=== PATIENT | female | born 1980 | race Native Hawaiian/Other Pacific Islander ===

== ENCOUNTER 2017-09-03 18:42 | Emergency (ER) | payer BC ==
[~2017-09-03 18:42] MED LIST: ENOX40P SQ; PERC5TAB12 PO; PREN1TAB30
[2017-09-03 18:51] VITALS: BP 132/86; PULSE 84; RESP 16; TEMP 98.2; O2SAT 99
--- NOTE | 2017-09-03 19:06 | PD ---
HPI Chief Complaint: Chest Pain Time Seen by Provider: 18:56 Travel History International Travel<30 days: No Contact w/Intl Traveler<30days: No Traveled to known affect area: No History of Present Illness HPI The patient was seen and examined in the presence of the nurse. This patient complains of chest tightness. Duration 4 days. Severity is moderate. There is no sharp stabbing pain. It is not pleuritic. No shortness of breath or fever or chest injury. She reports that she had a different type of chest pain 4 years ago and had a negative stress test. She denies any chronic health problems. She noted 4 days ago she developed some swelling in her feet. No alleviating factors. No exacerbating factors. PFSH Past Medical History Diminished Hearing: No Reproductive: Yes (L OVARIAN CLOT AT 18YRS) Immunizations Current: Yes ?: Not LMP: 3 WEEKS Past Surgical History Section: Yes Social History Alcohol Use: No Tobacco Use: No Substance Use: No Allergies-Medications (Allergen,Severity, Reaction): Coded Allergies: nitrofurantoin (Verified Allergy, Severe, RASH/HIVES, 09/03/17) sulfamethoxazole (Verified Allergy, Severe, HIVES/RASH, 09/03/17) trimethoprim (Verified Allergy, Severe, HIVES/RASH, 09/03/17) latex (Verified Allergy, Mild, Rash, 09/03/17) Reported Meds & Prescriptions Reported Meds & Active Scripts Active Reported Ibuprofen 600 Mg Tab 600 Mg PO Q6H PRN Review of Systems General / Constitutional: No: Fever Eyes: No: Visual changes HENT: No: Headaches Cardiovascular: Positive: Chest Pain or Discomfort, Edema Respiratory: No: Shortness of Breath Gastrointestinal: No: Abdominal Pain Genitourinary: No: Dysuria Musculoskeletal: Positive: Edema, No: Pain Skin: No Rash Neurologic: No: Weakness Psychiatric: No: Depression Endocrine: No: Polydipsia Hematologic/Lymphatic: No: Easy Bruising Physical Exam Narrative GENERAL: Well-nourished, well-developed patient in no apparent distress. SKIN: Focused skin assessment reveals no rash and nodules. Skin is Warm and dry. HEAD: Atraumatic. Normocephalic. EYES: Pupils equal and round. No scleral icterus. No injection or drainage. ENT: No nasal bleeding or discharge. Mucous membranes pink and moist. NECK: Trachea midline. No JVD. CARDIOVASCULAR: Regular rate and rhythm. No murmur appreciated. RESPIRATORY: No accessory muscle use. Clear to auscultation. Breath sounds equal bilaterally. GASTROINTESTINAL: Abdomen soft, non-tender, nondistended. Hepatic and splenic margins not palpable. MUSCULOSKELETAL: No obvious deformities. No clubbing. No cyanosis. There is some edema of both feet in a symmetric fashion. Does not include the legs. No chest wall tenderness NEUROLOGICAL: Awake and alert. No obvious cranial nerve deficits. Motor grossly within normal limits. Normal speech. PSYCHIATRIC: Appropriate mood and affect; insight and judgment normal. Data Data Last Documented VS Vital Signs Date Time Temp Pulse Resp B/P (MAP) Pulse Ox O2 Delivery O2 Flow Rate FiO2 09/03/17 19:21 68 20 108/77 (87) 100 09/03/17 18:51 98.2 Orders Orders Electrocardiogram (09/03/17:) Ckmb (Isoenzyme) Profile (09/03/17:) Complete Blood Count With Diff (09/03/17:) Comprehensive Metabolic Panel (09/03/17:) Prothrombin Time / Inr (Pt) (09/03/17:) Act Partial Throm Time (Ptt) (09/03/17:) Troponin I (09/03/17:) Chest, Single Ap (09/03/17:) Ecg Monitoring (09/03/17 19:) Iv Access Insert/Monitor (09/03/17:) Oximetry (09/03/17:) Sodium Chloride 0.9% Flush (Ns Flush) (09/03/17 19:15) Labs Laboratory Tests Test 09/03/17 19:10 White Blood Count 8.3 TH/MM3 Red Blood Count 4.65 MIL/MM3 Hemoglobin 13.2 GM/DL Hematocrit 40.1 % Mean Corpuscular Volume 86.2 FL Mean Corpuscular Hemoglobin 28.5 PG Mean Corpuscular Hemoglobin Concent 33.0 % Red Cell Distribution Width 11.8 % Platelet Count 284 TH/MM3 Mean Platelet Volume 6.9 FL Neutrophils (%) (Auto) 53.0 % Lymphocytes (%) (Auto) 33.2 % Monocytes (%) (Auto) 8.4 % Eosinophils (%) (Auto) 4.7 % Basophils (%) (Auto) 0.7 % Neutrophils # (Auto) 4.3 TH/MM3 Lymphocytes # (Auto) 2.8 TH/MM3 Monocytes # (Auto) 0.7 TH/MM3 Eosinophils # (Auto) 0.4 TH/MM3 Basophils # (Auto) 0.1 TH/MM3 CBC Comment DIFF FINAL Differential Comment Prothrombin Time 10.9 SEC Prothromb Time International Ratio 1.1 RATIO Activated Partial Thromboplast Time 29.2 SEC Blood Urea Nitrogen 9 MG/DL Creatinine 0.62 MG/DL Random Glucose 85 MG/DL Total Protein 7.2 GM/DL Albumin 3.7 GM/DL Calcium Level 8.2 MG/DL Alkaline Phosphatase 90 U/L Aspartate Amino Transf (AST/SGOT) 15 U/L Alanine Aminotransferase (ALT/SGPT) 21 U/L Total Bilirubin 0.5 MG/DL Sodium Level 137 MEQ/L Potassium Level 3.6 MEQ/L Chloride Level 105 MEQ/L Carbon Dioxide Level 26.6 MEQ/L Anion Gap 5 MEQ/L Estimat Glomerular Filtration Rate 109 ML/MIN Total Creatine Kinase 81 U/L Troponin I LESS THAN 0.02 NG/ML MDM Medical Decision Making Medical Screen Exam Complete: Yes Emergency Medical Condition: Yes Medical Record Reviewed: Yes Differential Diagnosis Differential diagnosis includes GA, angina, pericarditis, pleurisy, GERD, anxiety. Narrative Course I have reviewed the patient's electronic medical record. IV placed I reviewed the EKG which shows sinus rhythm without ST elevation or ectopy I reviewed the chest x-ray which is normal Extended cardiac monitoring shows sinus rhythm without ectopy CBC is normal Metabolic profile is normal CK is normal Troponin is normal Coagulation studies are normal LFTs are normal Workup is entirely negative. However she is 37-year-old with sternal chest tightness. I recommended chest pain center observation to rule out cardiac cause of her symptoms. I discussed my rationale. She has thought about it and is going to decline. She will refuse my recommendation for admission and go home. She will try to follow-up with her physician on Wednesday. She cites that she has to 3-year-old daughters that she has to take care of. Diagnosis Primary Impression: Chest pain Qualified Codes: R07.9 - Chest pain, unspecified Additional Instructions: Return if you change your mind or worsen The patient was advised to follow up with their physician and return if they worsen. Med/Other Pt SpecificInfo: Other Disposition: 01 DISCHARGE HOME Condition: Stable Shayne Barragan MD Sep 03, 2017 19:06
[2017-09-03] MEDS ORDERED: SODIUM CHLORIDE 0.9% FLUSH 10 ML FLUSH IVF PRN (19:15)
[2017-09-03 19:18] LABS: AUTOMATED NEUTROPHIL # 4.3 TH/MM3 (1.8-7.7); BASOPHIL # 0.1 TH/MM3 (0-0.2); BASOPHIL % 0.7 % (0.0-2.0); EOSINOPHIL # 0.4 TH/MM3 (0-0.4); EOSINOPHIL % 4.7 % (0.0-4.0); HEMATOCRIT 40.1 % (35.0-46.0); HEMOGLOBIN 13.2 GM/DL (11.6-15.3); LYMPH % 33.2 % (9.0-44.0); LYMPHOCYTE # 2.8 TH/MM3 (1.0-4.8); MEAN CELL VOLUME 86.2 FL (80.0-100.0); MEAN CORPUSCULAR HEMOGLOBIN 28.5 PG (27.0-34.0); MEAN PLATELET VOLUME 6.9 FL (7.0-11.0); MONO % 8.4 % (0.0-8.0); MONOCYTE # 0.7 TH/MM3 (0-0.9); PLATELET COUNT 284 TH/MM3 (150-450); RED BLOOD COUNT 4.65 MIL/MM3 (4.00-5.30); RED CELL DISTRIBUTION WIDTH 11.8 % (11.6-17.2); WHITE BLOOD COUNT 8.3 TH/MM3 (4.0-11.0)
[2017-09-03 19:21] VITALS: BP 108/77; PULSE 68; RESP 20; O2SAT 100
[2017-09-03 19:26] LABS: CHLORIDE 105 MEQ/L (98-107); SODIUM (NA) 137 MEQ/L (136-145)
[2017-09-03 19:29] LABS: ALBUMIN 3.7 GM/DL (3.4-5.0); BICARBONATE 26.6 MEQ/L (21.0-32.0); BLOOD UREA NITROGEN 9 MG/DL (7-18); CALCIUM 8.2 MG/DL (8.5-10.1); GLUCOSE,RANDOM 85 MG/DL (74-106)
[2017-09-03 19:31] LABS: INTERNATIONAL NORMALIZED RATIO 1.1 RATIO; PROTHROMBIN TIME - PATIENT 10.9 SEC (9.8-11.6)
[2017-09-03 19:32] LABS: ALT (GPT) 21 U/L (10-53); AST (GOT) 15 U/L (15-37); CREATININE 0.62 MG/DL (0.50-1.00); GLOMERULAR FILTRATION RATE 109 ML/MIN (>89)
[2017-09-03] MEDS ORDERED: IBUP-232 PO (19:33)
[2017-09-03 19:34] LABS: TOTAL BILIRUBIN ADULT 0.5 MG/DL (0.2-1.0); TOTAL PROTEIN 7.2 GM/DL (6.4-8.2)
[2017-09-03 19:35] LABS: ALKALINE PHOSPHATASE 90 U/L (45-117)
[2017-09-03 19:37] LABS: TROPONIN I LESS THAN 0.02 NG/ML (0.02-0.05)
--- NOTE | 2017-09-03 19:40 | RADRPT ---
EXAM DATE: 09/03/2017 7:19 PM EDT AGE/SEX: 37 years / Female INDICATIONS: Chest pain. CLINICAL DATA: This is the patient's initial encounter. Patient reports that signs and symptoms have been present for 1 day and indicates a pain score of 7/10. MEDICAL/SURGICAL HISTORY: None. section. COMPARISON: No prior exams available for comparison. FINDINGS: A single AP view of the chest demonstrates the lungs to be symmetrically aerated without evidence of mass, infiltrate or effusion. The cardiomediastinal contours are unremarkable. Osseous structures a re intact. CONCLUSION: No acute cardiopulmonary process. Electronically signed by: Garry Harris MD 09/03/2017 7:39 PM EDT
[2017-09-03 20:31] VITALS: BP 111/71
--- NOTE | 2017-09-04 14:59 | EKG ---
Date Performed: 09/03/2017 Time Performed: 18:52:26 PTAGE: 37 years EKG: Sinus rhythm LOW QRS VOLTAGE IN PRECORDIAL LEADS NONSPECIFIC T-WAVE ABNORMALITY BORDERLINE ECG NO PREVIOUS TRACING DOCTOR: Kj Good Interpretating Date/Time 09/04/2017 14:58:55
== END 2017-09-03 20:34 | disposition home or self-care (01) ==
LOC: PHED 18:42
DX: R07.9 Chest pain, unspecified (principal); M79.89 Other specified soft tissue disorders; R94.31 Abnormal electrocardiogram [ECG] [EKG]
CPT/HCPCS: 71045; 80053; 82550; 84484; 85025; 85610; 85730; 93005; 99285